=== PATIENT | female | born 1975 | race Caucasian/White ===

== ENCOUNTER 2024-06-10 19:31 | Emergency (ER) | payer SELFPAY ==
[2024-06-10 19:36] VITALS: BP 203/147
[2024-06-10 19:38] VITALS: BP 192/149
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
[2024-06-10 21:00] VITALS: BP 155/94
[2024-06-10 21:06] VITALS: BP 173/120
[2024-06-10 21:16] LABS: Hematocrit 41.6 % (37.0-47.0); Mean Corp Hgb Conc. 33.7 g/dL (33.0-37.0); Mean Corpuscular Hgb 28.8 pg (27.0-31.0); Mean Corpuscular Volume 85.6 fL (81.0-99.0); Mean Platelet Volume 10.3 fL (7.4-10.4); Platelet Count 320 10^3/uL (130-400); Red Blood Cell Count 4.86 10^6/uL (4.20-5.40); Red Cell Dist. Width 14.1 % (11.5-14.5); White Blood Cell Count 9.1 10^3/uL (4.8-10.8)
[2024-06-10 21:20] LABS: ALT (SGPT) 24 U/L (0-35); AST (SGOT) 25 U/L (14-36); Albumin 4.5 g/dl (3.5-5.0); Alkaline Phosphatase 139 U/L (38-126); Blood Urea Nitrogen 13 mg/dl (7-17); Calcium 9.5 mg/dl (8.4-10.2); Carbon Dioxide 23 mmol/L (22-30); Chloride 100 mmol/L (98-107); Glucose 95 mg/dl (70-99); Magnesium 2.1 mg/dl (1.6-2.3); Potassium 3.9 mmol/L (3.5-5.1); Sodium 135 mmol/L (135-145); Total Bilirubin 0.6 mg/dl (0.2-1.3); Total Protein 7.4 g/dl (6.3-8.2); eGFR > 60.00
[2024-06-10 21:30] LABS: Troponin I < 0.012 ng/ml
[2024-06-10 21:41] VITALS: BP 160/101
[2024-06-10] MEDS: ORETIC 25 MG PO (21:42)
[2024-06-10] MEDS: TRANDATE 10 MG IV (21:43)
[2024-06-10 21:51] LABS: TSH 1.13 uIU/ml (0.47-4.68)
[2024-06-10 22:00] VITALS: BP 163/107
== END 2024-06-10 22:52 | disposition home or self-care (01) ==
LOC: EMR 19:31
PROVIDERS: EMERGENCY PHYSICIAN Emergency Medicine; FAMILY PHYSICIAN Internal Medicine
DX: I10 Essential (primary) hypertension (principal); R07.89 Other chest pain; R42 Dizziness and giddiness
CPT/HCPCS: 96374; 99284; 80053; 83735; 84443; 84484; 85027; 93005